=== PATIENT | male | born 2000 | race Caucasian/White ===

== ENCOUNTER 2023-01-13 20:10 | Emergency (ER) | payer OTHER ==
[2023-01-13 20:17] VITALS: BP 140/78
--- NOTE | 2023-01-13 21:51 | ED Physician Documentation ---
History of Present Illness - Stated complaint Stated Complaint: FACE INJURY - Chief complaint Chief Complaint: Trauma Hd/Nk - History obtained from History obtained from: Patient - History of Present Illness Timing: Today Pain level max: 0 Pain level now: 0 - Additonal information Additional information: Patient is a 22-year-old male who presents to the emergency department after being struck in the upper lip by a softball today. He has an abrasion/laceration to the inner upper lip. Teeth feel normal. No loss of consciousness. No neck or back pain. Review of Systems Constitutional: denies: Fever GI: denies: Vomiting Neurologic: denies: Seizure, LOC PD PAST MEDICAL HISTORY - Past Medical History Past Medical History: No - Past Surgical History Past Surgical History: No - Present Medications Home Medications: Ambulatory Orders Medication Instructions Recorded Confirmed Chlorhexidine Gluconate [Peridex] 15 ml MM BID #118 ml 01/13/23 - Allergies Allergies/Adverse Reactions: Allergies Allergy/AdvReac Type Severity Reaction Status Date / Time No Known Drug Allergies Allergy Verified 01/13/23 20:13 - Living Situation Living Arrangement: reports: At home - Social History Does the pt have substance abuse?: No - Family History Family history: reports: Non contributory - Immunizations Immunizations are current?: Yes Immunizations: TDAP current <10years PD ED PE NORMAL - Vitals Vital signs reviewed: Yes - General General: Alert and oriented X 3, No acute distress - HEENT HEENT: Atraumatic, PERRL, EOMI, Moist mucous membranes, Other (Abrasion to the inner upper lip. Dentition intact. No facial bone tenderness. No lip swelling.) - Neck Neck: Supple, no meningeal sign - Cardiac Cardiac: RRR - Respiratory Respiratory: No respiratory distress, Clear bilaterally - Derm Derm: Warm and dry - Neuro Neuro: Alert and oriented X 3 Results - Vitals Vitals: Vital Signs - 24 hr 01/13/23 20:13 Temperature 36.5 C Heart Rate 90 Respiratory 16 Rate Blood Pressure 140/78 H O2 Saturation 98 Oxygen O2 Source Room air PD Medical Decision Making - ED course Complexity details: considered differential, d/w patient ED course: No laceration to repair on the inner upper lip. Dentition is normal. No darin cation for emergent facial CT. No evidence of facial bone fractures No loss of consciousness. We will place on chlorhexidine mouth rinses for home and keep on a liquid diet. Patient counseled regarding signs and symptoms for which I believe and urgent re-evaluation would be necessary. Patient with good understanding of and agreement to plan and is comfortable going home at this time This document was made in part using voice recognition software. While efforts are made to proofread this document, sound alike and grammatical errors may occur. Departure - Departure Disposition: Home, Self Care Clinical Impression: Lip abrasion Qualifiers: Encounter type: initial encounter Qualified Code(s): S00.511A - Abrasion of lip, initial encounter Condition: Good Instructions: ED Laceration Mouth Follow-Up: your,doctor in 1 week for wound check [Other] Prescriptions: Chlorhexidine Gluconate [Peridex] 15 ml MM BID #118 ml Comments: Use the mouthwash as prescribed for the next 3 to 5 days. I would recommend a liquid diet for the next 24 hours. The inside of your upper lip will heal without issue. Please return if you notice redness, swelling or drainage from the lip. Your prescription was sent to the [facility]. Discharge Date/Time: 01/13/23 22:03
== END 2023-01-13 22:03 | disposition home or self-care (01) ==
LOC: ED 20:10
DX: S00.511A Abrasion of lip, initial encounter (principal); W21.07XA Struck by softball, initial encounter
CPT/HCPCS: 99281; 99283